=== PATIENT | female | born 1940 | race Caucasian/White ===

== ENCOUNTER 2018-07-07 08:01 | Day surgery (SDC) | payer OTHER ==
[2018-07-07] MEDS ORDERED: LR 1,000 ML IV ONE (08:16)
[2018-07-07] MEDS ORDERED: ceFAZolin 2 GM/DEXTROSE 100 ML IV ONE (08:16)
[2018-07-07] MEDS ORDERED: NS 1,000 ML IV ONE (08:31)
[2018-07-07 08:56] LABS: PLATELET COUNT 187 10^3/uL (150-400)
[2018-07-07] MEDS ORDERED: THROMBIN (BOVINE) 20,000 UNIT VIAL TP ONE (10:37)
[2018-07-07] MEDS ORDERED: THROMBIN (BOVINE) 5,000 UNIT VIAL TP ONE (10:38)
[2018-07-07] MEDS ORDERED: BUPIVACAINE 0.5% 30 ML SDV ONE (10:38)
[2018-07-07] MEDS ORDERED: PROTAMINE SULFATE 50 MG/5 ML VIAL IVP ONE (10:38)
[2018-07-07] MEDS ORDERED: PAPAVERINE HCL 60 MG/2 ML SDV ONE (10:40)
[2018-07-07] MEDS ORDERED: THROMBIN (BOVINE) 20,000 UNIT SPRAY TP ONE (10:41)
--- NOTE | 2018-07-07 11:30 | PDHPUP ---
History & Physical Update H&P update statement: This history and physical update is based on an assessment of the patient which was completed after admission or registration (within 24 hours), but prior to the surgery/procedure. H&P update: H&P reviewed & patient examined, no change in patient's condition since H&P completed
[2018-07-07] MEDS ORDERED: NALOXONE HCL 0.4 MG/ML INJ IVP PRN (11:39)
[2018-07-07] MEDS ORDERED: fentaNYL 100 MCG/2 ML INJ IVP PRN (11:39)
[2018-07-07] MEDS ORDERED: ALBUTEROL 3 ML DEYVIAL IH PRN (11:39)
[2018-07-07] MEDS ORDERED: ONDANSETRON 4 MG/2 ML VIAL IVP PRN (11:39)
[2018-07-07] MEDS ORDERED: ACETAMINOPHEN 500 MG TAB PO PRN (11:39)
--- NOTE | 2018-07-07 11:40 | PDANEPAE ---
ANE History of Present Illness L AV Fistula ANE Past Medical History - Cardiovascular History Hx Hypertension: No Hx Arrhythmias: Yes Hx Chest Pain: No Hx Coronary Artery / Peripheral Vascular Disease: No Hx CHF / Valvular Disease: No Hx Palpitations: Yes Cardiovascular History Comment: "MISSED BEATS" - Pulmonary History Hx COPD: No Hx Asthma/Reactive Airway Disease: Yes Hx Recent Upper Respiratory Infection: No Hx Oxygen in Use at Home: No Hx Sleep Apnea: No Sleep Apnea Screening Result - Last Documented: Negative Pulmonary History Comment: HX ASTHMA - STARTED EXERCISING & ASTHMA RESOLVED - Neurologic History Hx Cerebrovascular Accident: No Hx Seizures: No Hx Dementia: No - Endocrine History Hx Diabetes: No Endocrine History Comment: RECENTLY FOUND TO HAVE ELEVATED BLOOD SUGARS - WAS SENT A GLUCOMETER BUT DOES NOT YET KNOW HOW TO USE. BLOOD SUGAR WAS CHECKED AT [facility] 06/29/18 AND READ 100 - Renal History Hx Renal Disorders: Yes Renal History Comment: L KIDNEY SURGERY 2010- NOT SURE IF KIDNEY WAS REMOVED BUT WAS ON DIALYSIS 2-3 MONTHS AT THAT TIME - Liver History Hx Hepatic Disorders: No - Neurological & Psychiatric Hx Hx Neurological and Psychiatric Disorders: No - Cancer History Hx Cancer: No - Congenital Disorder History Hx Congenital Disorders: No - GI History Hx Gastrointestinal Disorders: No - Other Health History Other Health History: CURRENT SWOLLEN L ARM. ANEMIA - STARTED IRON ABOUT A MONTH AGO - Chronic Pain History Chronic Pain: No - Surgical History Prior Surgeries: PACEMAKER IMPLANTED 2010. AV FISTULA PLACED 2010. L KIDNEY SURGERY 2010. 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 HYSTERECTOMY. 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[employer] Date Pacemaker Last Checked: 07/06/18 [facility]E Patient History - Allergies Allergies/Adverse Reactions: No Known Allergies Allergy (Unverified 05/09/11 11:20) - Home Medications Home Medications: Aspirin 07/06/18 [Last Taken 1 Week Ago ~06/30/18] Calcitriol 07/06/18 [Last Taken 07/06/18] Herbals/Supplements -Info Only 07/06/18 [Last Taken 07/06/18] Iron 07/06/18 [Last Taken 07/06/18] Levothyroxine 07/06/18 [Last Taken 07/07/18 05:00] - NPO status NPO Since - Liquids (Date): 07/07/18 NPO Since - Liquids (Time): 05:00 NPO Since - Solids (Date): 07/06/18 NPO Since - Solids (Time): 16:00 - Smoking Hx Smoking Status: Never smoked ANE Labs/Vital Signs - Labs Result Diagrams: 07/07/18 08:43 07/07/18 08:43 - Vital Signs Blood Pressure: 170/76 Heart Rate: 62 Respiratory Rate: 18 O2 Sat (%): 96 Height: 167.64 cm Weight: 80.739 kg ANE Physical Exam - Airway Neck exam: FROM Mallampati Score: Class 2 Mouth exam: normal dental/mouth exam - Pulmonary Pulmonary: clear to auscultation - Cardiovascular Cardiovascular: regular rate and rhythym - ASA Status ASA Status: III ANE Anesthesia Plan Anesthesia Plan: GA with mask
[2018-07-07] MEDS ORDERED: PROPOFOL/EMULSION 500 MG/50 ML BOTTLE IV ONE (11:55)
[2018-07-07] MEDS ORDERED: LIDOCAINE 2% 5 ML SDV ONE (11:56)
[2018-07-07] MEDS ORDERED: LIDOCAINE 1% 300 MG/30 ML SDV ONE (12:06)
[2018-07-07] MEDS ORDERED: ONDANSETRON 4 MG/2 ML VIAL ONE (12:08)
[2018-07-07] MEDS ORDERED: fentaNYL 100 MCG/2 ML INJ ONE (12:09)
--- NOTE | 2018-07-07 12:22 | CPEKG ---
Test Reason : OPEN Blood Pressure : / mmHG Vent. Rate : 060 BPM Atrial Rate : 060 BPM P-R Int : 189 ms QRS Dur : 112 ms QT Int : 484 ms P-R-T Axes : 042 -71 008 degrees QTc Int : 484 ms Atrial-paced rhythm Left anterior fascicular block Nonspecific T abnrm, anterolateral leads Confirmed by Valerio Sumner ([id number]) on 07/07/2018 12:22:04 PM Referred By: Confirmed By:Valerio Sumner
--- NOTE | 2018-07-07 12:54 | POSTANESTH ---
Post Anesthetic Evaluation Cardiovascular Status: Normal, Stable Respiratory Status: Normal, Stable Level of Consciousness/Mental Status: Can Participate in Eval, Mildly Sleepy, Arousable Pain Control: Adequate, Prn Tx Ordered Nausea/Vomiting Control: Adequate, Prn Tx Ordered Complications Possibly Related to Anesthesia: None Noted
--- NOTE | 2018-07-07 13:02 | POSTOPPROG ---
Post Op Note Date of Operation: 07/07/18 Surgeon: Valerio Figueroa Information Assoc: Claire Fontana Anesthesiologist: Jamari Martinez Anesthesia: GET(General Endotracheal) Pre-op Diagnosis: CRF Post-op Diagnosis: same Procedure: L radiocephalic AVF revision c ligation of collaterals x 3 Findings: stronger flow s/p collateral ligation Inf/Abcess present in the surg proc area at time of surgery?: No EBL: Minimal Complications: none
[2018-07-07 14:34] VITALS: BP 147/54
--- NOTE | 2018-07-08 16:19 | GOP ---
DATE OF OPERATION: 07/07/2018 SURGEON: Valerio Figueroa MD PRESS AND BLOW MACHINE TENDER: JOHAN Gallegos ANESTHESIOLOGIST: Dr. Martinez PREOPERATIVE DIAGNOSIS: Chronic renal failure. POSTOPERATIVE DIAGNOSIS: Chronic renal failure. PROCEDURE PERFORMED: Revision of arteriovenous fistula with ultrasound vein mapping and ligation of collaterals. FINDINGS: 2 SMALL COLATERALS INDICATIONS: Patient has an old fistula, but is about to restart dialysis. She has developed some lateral collaterals, which need ligation to help improve the flow through her main fistula track. DESCRIPTION OF PROCEDURE: The patient was taken to the operating room where she received some IV sedation and conscious anesthesia by Dr. Martinez. She was placed in supine position with her left arm outstretched on an arm board, prepped and draped in usual sterile fashion using 1% Xylocaine local infiltration. The areas, which had been mapped with ultrasound and marked were exposed through short incisions tangential to the main AV fistula body. She tolerated the procedure well. Wounds were closed with a 4-0 Monocryl subcuticular stitch and infiltrated with 0.5% Marcaine. Fistula was flowing well at completion of the procedure. There were no complications. Copy requested to: Selina Mackenzie /[id number]/MODL MTDD
== END 2018-07-07 14:50 | disposition home or self-care (01) ==
LOC: FSGY 08:01
PROVIDERS: ATTEND Surgery
PROC: 05LY0ZZ Occlusion of Upper Vein, Open Approach (ICD-10-PCS; principal; 2018-07-07 11:45)
DX: N18.4 Chronic kidney disease, stage 4 (severe) (principal); T82.898A Other specified complication of vascular prosthetic devices, implants and grafts, initial encounter; I12.9 Hypertensive chronic kidney disease with stage 1 through stage 4 chronic kidney disease, or unspecified chronic kidney disease; I49.5 Sick sinus syndrome; G25.81 Restless legs syndrome; E03.9 Hypothyroidism, unspecified; F41.9 Anxiety disorder, unspecified; E89.2 Postprocedural hypoparathyroidism; I48.91 Unspecified atrial fibrillation; D64.9 Anemia, unspecified; Z95.0 Presence of cardiac pacemaker
CPT/HCPCS: J0690; J1644; J2405; J2440; J2704; J2720; J3010